=== PATIENT | female | born 1945 | race Caucasian/White ===

== ENCOUNTER 2016-12-05 10:24 | Outpatient (CLI) | payer MEDICARE, OTHER ==
[2016-12-05 12:29] LABS: #Basophils 0.1 thou/uL (0.0-0.2); #Eosinphils 0.3 thou/uL (0.0-0.7); #Lymphocytes 3.7 thou/uL (1.20-3.40); #Monocytes 0.8 thou/uL (0.11-0.59); #Neutrophils 5.1 thou/uL (1.40-6.50); %Basophils 1.1 % (0.0-1.0); %Eosinophils 2.8 % (0.0-10.0); %Lymphocytes 36.8 % (21.0-51.0); %Monocytes 8.4 % (0.0-10.0); Hematocrit 42.2 % (36.0-47.0); Red Blood Cell (RBC) Count 4.51 mill/uL (4.20-5.40)
[2016-12-05 12:43] LABS: Anion Gap 15 mmol/L (10-20); BUN (Urea Nitrogen) 22 mg/dL (9.8-20.1); Calc. Creatinine Clearance 0 mL/min (70-130); Calcium 9.4 mg/dL (7.8-10.44); Carbon Dioxide 27 mmol/L (23-31); Chloride 105 mmol/L (98-107); Estimated GFR-MDRD 56
--- NOTE | 2016-12-05 16:48 | EKG ---
Test Reason : Blood Pressure : / mmHG Vent. Rate : 071 BPM Atrial Rate : 071 BPM P-R Int : 130 ms QRS Dur : 068 ms QT Int : 388 ms P-R-T Axes : 025 -06 005 degrees QTc Int : 421 ms Normal sinus rhythm Inferior infarct , age undetermined Anterior infarct (cited on or before 22-JUL-2015) Abnormal ECG When compared with ECG of 22-JUL-2015 14:03, Inferior infarct is now Present T wave inversion now evident in Inferior leads Confirmed by DR. Calvin AHUJA ([id number]) on 12/05/2016 4:48:20 PM Referred By: JAYESH Confirmed By:DR. Calvin AHUJA
== END 2016-12-05 10:25 | disposition home or self-care (01) ==
LOC: LABBT 10:24
PROVIDERS: ATTEND Orthopaedic Surgery
DX: Z01.818 Encounter for other preprocedural examination (principal); M23.91 Unspecified internal derangement of right knee
CPT/HCPCS: 80048; 85025; 93005; 93010

== ENCOUNTER 2016-12-07 05:57 | Day surgery (SDC) | payer MEDICARE, OTHER ==
[2016-12-05 10:49] VITALS: BMI 24.5
[2016-12-07] MEDS ORDERED: Diprivan 20 ML ONE (06:22)
[2016-12-07] MEDS ORDERED: Fentanyl 100 MCG/2 ML VIAL ONE (06:33)
[2016-12-07] MEDS ORDERED: CEFAZOLIN/Water 2 GM/20 ML SYRINGE ONE (06:37)
[2016-12-07] MEDS ORDERED: Dexamethasone 20 MG/5 ML VIAL ONE (07:40)
[2016-12-07] MEDS ORDERED: Propofol 200 MG/20 ML VIAL ONE (07:40)
[2016-12-07] MEDS ORDERED: Ketorolac Tromethamine 30 MG/ML VIAL ONE (07:40)
[2016-12-07] MEDS ORDERED: Ondansetron HCl/PF 4 MG/2 ML Vial ONE ×2 (07:40→08:16)
[2016-12-07] MEDS ORDERED: Lidocaine 1% PF 5 ML VIAL ONE (07:40)
[2016-12-07] MEDS ORDERED: HYDROcodone/Acetaminophen 5/325 mg Tablet ONE (10:03)
--- NOTE | 2016-12-07 11:39 | OP ---
DATE OF PROCEDURE: 12/07/2016 PREOPERATIVE DIAGNOSIS: Right knee arthritis with degenerative meniscus tear. POSTOPERATIVE DIAGNOSES: 1. Right knee arthritis with degenerative meniscus tear. 2. Loose body at the base of the ACL, which is greater than 1 cm in size. PROCEDURE PERFORMED: 1. Right knee arthroscopy with partial lateral meniscectomy. 2. Removal of a large bony loose body. SURGEON: Riky Covington M.D. [employer] SPECIALIST: None. BLOOD LOSS: Minimal. COMPLICATIONS: None. ANESTHESIA: She had a local knee block. She had general anesthetic. CONDITION: She went to the recovery room in stable condition. INDICATIONS: This is a 71-year-old female, who is known to have arthritis, but did not wish to have a knee replaced and at this time opted to have arthroscopy to see if it would help her symptoms of catching and swelling. OPERATIVE PROCEDURE: After all appropriate consent forms were explained and signed, she was taken b ack to the operating room and at this time was given general anesthetic. Once the anesthesia was ap propriate, tourniquet was placed on the right thigh and leg was placed in an arthroscopic leg brunner . She was then prepped and draped in the standard surgical fashion. The limb was then exsanguinate d and tourniquet taken up to 300 mmHg. An inferolateral portal was established and the scope was pl aced into the knee joint. Needle localization technique was then used to make a medial working port al. Diagnostic arthroscopy commenced in the notch. ACL was found to be partially torn with a large ball of tissue on the medial aspect of it. This was shaved down, remaining fibers ACL found to be intact. The PCL was in good condition. At the base of the ACL, there was a large loose body, which was greater than a centimeter. This was freed up and removed with a grasper. Medial compartment w as then evaluated, the patient had significant arthritic change in the medial compartment with grade 4 lesions on the femur and tibia. She had either ground down her medial meniscus or had previous p artial meniscectomy, and there were some frayed edges, which were debrided, but no significant parti al meniscectomy was performed. We then turned our attention to the lateral compartment, which overa ll was in good condition as far as the femur is concerned, the tibia did have some grade II changes right in the center of the lateral tibial plateau and the posterior horn of the lateral meniscus had a tear. This was a horizontal cleavage type tear. Partial meniscectomy was performed using menisc al biter and shaver, leaving as much meniscus as possible. The gutters were swept through and no lo ose bodies were noted, but peripheral osteophytes were noted on both aspects of the femur. The butcher llofemoral joint was then found to overall be in good condition with big cartilage on the patella an d a small central grade 4 lesion of the trochlea with no unstable chondral flaps. The suprapatellar pouch was evaluated for any possible loose bodies and there were some cartilaginous loose bodies, w hich were removed with a suction shaver device, but no other significant treatment. At this time, s cope was removed, knee was drained, portals were closed with simple nylon stitch. A bulky sterile d ressing was applied and the tourniquet was let down. Toes pinked up nicely. The patient was awaken ed and taken to the recovery room in stable condition. All counts were correct at the end of the ca se. She received preoperative IV antibiotics.
[2016-12-07] MEDS ORDERED: Bupivacaine PF 0.5% 30 ML VIAL ONE (13:25)
[2016-12-07] MEDS ORDERED: Lidocaine 2% w/Epinephrine 1:200K 20 ML VIAL ONE (13:25)
== END 2016-12-07 10:40 | disposition home or self-care (01) ==
LOC: SDC 05:57
PROVIDERS: ATTEND Orthopaedic Surgery
PROC: 0SBC4ZZ Excision of Right Knee Joint, Percutaneous Endoscopic Approach (ICD-10-PCS; principal; 2016-12-07)
PROC: 0SCC4ZZ Extirpation of Matter from Right Knee Joint, Percutaneous Endoscopic Approach (ICD-10-PCS; 2016-12-07)
DX: M17.11 Unilateral primary osteoarthritis, right knee (principal); S83.206A Unspecified tear of unspecified meniscus, current injury, right knee, initial encounter; M23.41 Loose body in knee, right knee; E89.0 Postprocedural hypothyroidism; Z79.899 Other long term (current) drug therapy; Z90.49 Acquired absence of other specified parts of digestive tract; Z90.710 Acquired absence of both cervix and uterus; Z98.890 Other specified postprocedural states; Z87.891 Personal history of nicotine dependence
CPT/HCPCS: 29874; 29881; 97139; G8978; G8979; G8980; J1100; J1885; J2001; J2405; J2704; J3010; S0020

== ENCOUNTER 2024-03-06 08:35 | Outpatient (CLI) | payer MEDICARE ==
[2024-03-06 10:12] LABS: #Basophils 0.07 10x3/uL (0.0-0.2); %Basophils 0.8 % (0.0-1.0); %Eosinophils 2.5 % (0.0-10.0); %Monocytes 9.8 % (0.0-10.0); %Neutrophils 46.8 % (42.0-75.0); Hematocrit 41.5 % (36.0-47.0); Hemoglobin 13.5 g/dL (12.0-16.0); Mean Corpuscular HGB CONC 32.5 g/dL (32.0-36.0); Mean Corpuscular Hemoglobin 29.3 pg (27.0-31.0); Platelet Count 366 10x3/uL (130-400); RBC Distribution Width 13.1 % (11.5-14.5); Red Blood Cell (RBC) Count 4.61 mill/uL (4.20-5.40)
[2024-03-06 10:29] LABS: Anion Gap 14 mmol/L (10-20); BUN (Urea Nitrogen) 23 mg/dL (9.8-20.1); Calc. Creatinine Clearance 0 mL/min (70-130); Calcium 9.3 mg/dL (7.8-10.44); Carbon Dioxide 28 mmol/L (23-31); Chloride 105 mmol/L (98-107); Estimated GFR 63; Glucose 91 mg/dL (83-110); Potassium 3.9 mmol/L (3.5-5.1); Sodium 143 mmol/L (136-145)
[2024-03-06 11:35] LABS: PTT 28.2 sec (22.9-36.1)
[2024-03-06 11:52] LABS: Bilirubin Negative (Negative); Blood, Urine Negative (Negative); Clarity Clear (Clear); Glucose, Urine (Dipstick) Normal (Negative); Ketone, Urine Negative (Negative); Leukocyte 250 Leu/uL (Negative); Nitrite Negative (Negative); Protein, Urine (Dipstick) 20 mg/dL (Neg-Trace); Specific Gravity, Urine 1.029 (1.002-1.036); Urobilinogen Normal mg/dL (Less than 2); pH, Urine 5.5 (5.0-9.0)
== END 2024-03-06 08:36 | disposition home or self-care (01) ==
LOC: LABBT 08:35
PROVIDERS: ATTEND Orthopaedic Surgery
DX: Z01.818 Encounter for other preprocedural examination (principal); M17.11 Unilateral primary osteoarthritis, right knee
CPT/HCPCS: 71046; 80048; 81003; 85025; 85610; 85730; 87081; 93005; 93010

== ENCOUNTER 2024-03-11 05:30 | Inpatient (IN) | payer MEDICARE ==
[2024-03-06 08:50] VITALS: BMI 24.3
[2024-03-11] MEDS ORDERED: Tranexamic Acid 1,000 MG/10 ML VIAL ONE ×2 (06:14→08:49)
[2024-03-11] MEDS ORDERED: Sodium Chloride 0.9% 0 ML ONE ×2 (06:15)
[2024-03-11] MEDS ORDERED: Vancomycin 1 GM/200 ML (FROZEN) BAG ONE (06:15)
[2024-03-11] MEDS ORDERED: CEFAZOLIN 2 GM VIAL ONE (06:15)
[2024-03-11] MEDS ORDERED: Sodium Chloride 0.9% 100 ML ONE (06:18)
[2024-03-11] MEDS ORDERED: Bupivacaine PF 0.5% 30 ML VIAL ONE (06:22)
[2024-03-11] MEDS ORDERED: PROPOFOL 40 ML ONE (06:26)
[2024-03-11] MEDS ORDERED: Midazolam HCl 2 mg/2 ml Vial ONE (06:26)
[2024-03-11] MEDS ORDERED: fentaNYL PF 100 MCG/2 ML SYRINGE ONE (06:26)
[2024-03-11] MEDS ORDERED: Promethazine HCl 25 MG/ML VIAL IM PRN ×2 (07:15→08:37)
[2024-03-11] MEDS ORDERED: traMADol HCl 50 MG TAB PO PRN (07:15)
[2024-03-11] MEDS ORDERED: Ropivacaine 0.2% 550 ML 550 ML NERVE BLCK SCH (07:15)
[2024-03-11] MEDS ORDERED: fentaNYL 50 mcg/mL 1 mL Vial SLOW IVP PRN (07:15)
[2024-03-11] MEDS ORDERED: Ondansetron PF 4 MG/2 ML Vial IVP PRN (07:15)
[2024-03-11] MEDS ORDERED: HYDROcodone/Acetaminophen 10/325 mg Tablet PO PRN (07:15)
[2024-03-11] MEDS ORDERED: Ropivacaine 0.5% HCl/PF (150 MG/30 ML VIAL) ONE (07:18)
[2024-03-11] MEDS ORDERED: Lidocaine 1% (PF) 30 ML VIAL ONE (07:18)
[2024-03-11] MEDS ORDERED: Dexamethasone 20 MG/5 ML VIAL ONE (07:20)
[2024-03-11] MEDS ORDERED: PHENYLEPHRINE-NS 100 MCG/ML 10 ML SYRINGE ONE (07:31)
[2024-03-11] MEDS ORDERED: Glycopyrrolate 0.2 MG/ML 5 ML SYRINGE ONE (07:56)
[2024-03-11] MEDS ORDERED: Ondansetron PF 4 MG/2 ML Vial ONE (08:34)
[2024-03-11] MEDS ORDERED: Ketorolac Tromethamine 30 MG (1 mL) VIAL ONE (08:35)
[2024-03-11] MEDS ORDERED: Zolpidem Tartrate 5 MG TAB PO PRN (08:37)
[2024-03-11] MEDS ORDERED: diphenhydrAMINE 25 MG CAP PO PRN (08:37)
[2024-03-11] MEDS ORDERED: Tranexamic Acid 1,000 MG in Sodium Chloride 0.9% 100 ML IVPB SCH (08:45)
[2024-03-11] MEDS ORDERED: Non-Formulary Item 1 EACH (Multivitamin [Daily Multiple Vitamin] 1 EACH Tablet) PO SCH (09:00)
[2024-03-11] MEDS ORDERED: fentaNYL 50 mcg/mL 1 mL Vial ONE ×4 (09:08→09:52)
[2024-03-11] MEDS: Lisinopril 5 MG TAB PO SCH (12:26)
[2024-03-11] MEDS: Ketorolac Tromethamine 30 MG (1 mL) VIAL IVP SCH (12:26)
[2024-03-11] MEDS: Pantoprazole 40 MG DR.TAB PO SCH (12:27)
[2024-03-11] MEDS: Aspirin 81 mg Enteric Coated Tablet PO SCH (12:27)
[2024-03-11] MEDS: Sodium Chloride 0.9% 1,000 ML IV SCH (12:27)
[2024-03-11] MEDS: Ezetimibe 10 MG TAB PO SCH (12:27)
[2024-03-11] MEDS: Ondansetron PF 4 MG/2 ML Vial IVP PRN (12:31)
[2024-03-11] MEDS: CEFAZOLIN 2 GM in Sodium Chloride 0.9% 100 ML IVPB SCH (14:54)
[2024-03-11 17:34] VITALS: BMI 24.3
[2024-03-11] MEDS: Vancomycin (BATCH) 1.5 GM in Premix 1 BAG IVPB SCH (20:06)
[2024-03-12 05:42] LABS: Hematocrit 29.9 % (36.0-47.0); Hemoglobin 9.9 g/dL (12.0-16.0); Mean Corpuscular HGB CONC 33.1 g/dL (32.0-36.0); Mean Corpuscular Hemoglobin 29.5 pg (27.0-31.0); Mean Platelet Volume 9.5 fL (7.4-10.4); Platelet Count 247 10x3/uL (130-400); RBC Distribution Width 13.1 % (11.5-14.5); Red Blood Cell (RBC) Count 3.36 mill/uL (4.20-5.40)
[2024-03-12] MEDS: Acetaminophen 325 MG TAB PO PRN (08:24)
[2024-03-12] MEDS: Multivitamin W/ Minerals 1 TAB PO SCH (08:24)
[2024-03-12] MEDS: Senokot S 8.6-50 MG TAB PO SCH (08:24)
[2024-03-12] MEDS: Ferrous Gluconate 324 MG TAB PO SCH (08:24)
[2024-03-12] MEDS: traMADol HCl 50 MG TAB PO PRN (08:29)
[2024-03-13] MEDS: HYDROcodone/Acetaminophen 10/325 mg Tablet PO PRN (04:59)
[2024-03-13 06:19] LABS: Hematocrit 30.5 % (36.0-47.0); Mean Corpuscular HGB CONC 32.8 g/dL (32.0-36.0); Mean Corpuscular Hemoglobin 28.9 pg (27.0-31.0); Mean Corpuscular Volume 88.2 fL (78.0-98.0); Mean Platelet Volume 9.9 fL (7.4-10.4); Platelet Count 261 10x3/uL (130-400); RBC Distribution Width 13.4 % (11.5-14.5); Red Blood Cell (RBC) Count 3.46 mill/uL (4.20-5.40)
[2024-03-13] MEDS: Ondansetron ODT 4 MG TAB SL PRN (15:57)
[2024-03-14 06:36] LABS: Hematocrit 30.3 % (36.0-47.0); Mean Corpuscular Hemoglobin 29.2 pg (27.0-31.0); Mean Corpuscular Volume 88.3 fL (78.0-98.0); Platelet Count 292 10x3/uL (130-400); RBC Distribution Width 13.4 % (11.5-14.5); Red Blood Cell (RBC) Count 3.43 mill/uL (4.20-5.40)
[2024-03-15 04:58] LABS: Mean Corpuscular HGB CONC 33.3 g/dL (32.0-36.0); Mean Corpuscular Hemoglobin 29.1 pg (27.0-31.0); Mean Corpuscular Volume 87.2 fL (78.0-98.0); Mean Platelet Volume 9.6 fL (7.4-10.4); Platelet Count 319 10x3/uL (130-400); RBC Distribution Width 13.3 % (11.5-14.5); Red Blood Cell (RBC) Count 3.44 mill/uL (4.20-5.40)
[2024-03-15 08:07] VITALS: BP 166/77; TEMP 97.7
== END 2024-03-15 09:20 | disposition home or self-care (01) | DRG 470 ==
LOC: SDC 05:30 → SURG B 11:36 → OBSVTOIN 03-12 12:55
PROVIDERS: ADMIT Orthopaedic Surgery; ATTEND Orthopaedic Surgery
PROC: 0SRC0J9 Replacement of Right Knee Joint with Synthetic Substitute, Cemented, Open Approach (ICD-10-PCS; principal; 2024-03-11)
DX: M17.11 Unilateral primary osteoarthritis, right knee (principal); D62 Acute posthemorrhagic anemia
CPT/HCPCS: 36415; 85027; A4306; C1713; C1776; C1889; J0665; J1100; J1885; J2250; J2405; J2704; J2795; J3010; J3370; J7030; Q0162